=== PATIENT | female | born 1995 | race Caucasian/White ===

== ENCOUNTER 2018-01-23 15:32 | Outpatient (CLI) | payer OTHER | END 2018-01-23 15:33 | disposition home or self-care (01) | LOC: BICULT 15:32 | PROVIDERS: ATTEND Student in an Organized Health Care Education/Training Program | DX: N63.20 Unspecified lump in the left breast, unspecified quadrant (principal) ==

== ENCOUNTER 2018-08-02 15:34 | Outpatient (CLI) | payer BC ==
--- NOTE | 2018-08-02 16:47 | ULT ---
LEFT BREAST DIAGNOSTIC ULTRASOUND: 08/02/18 INDICATION: Followup left breast mass. COMPARISON: Prior study from [facility] [place] dated 01/23/18. FINDINGS: Within the left breast 3:30 position, 3 cm from the nipple, there is a well circumscribed 1.2 x 0.6 x 1.1 cm hypoechoic mass. This corresponds to the lesion seen on the comparison examination. IMPRESSION: Stable left breast mass. Would recommend a full two years of sonographic followup for stability. The next followup is recommended to occur six months from today. The patient at that followup examinati on will be a year removed from the initial evaluation dated 01/23/18. Findings counseled to the frederick guerrero [facility]. POS: OFF
== END 2018-08-02 15:35 | disposition home or self-care (01) ==
LOC: BICULT 15:34
PROVIDERS: ATTEND Student in an Organized Health Care Education/Training Program
DX: N63.23 Unspecified lump in the left breast, lower outer quadrant (principal)

== ENCOUNTER 2019-01-01 15:52 | Outpatient (CLI) | payer BC ==
--- NOTE | 2019-01-01 16:08 | ULT ---
LEFT BREAST ULTRASOUND LIMITED: 01/01/19 HISTORY: Follow-up palpable finding in the left breast, 3:30 o'clock position, 3 cm from the nipple. COMPARISON: 08/02/18, 01/23/18. Circumscribed hypoechoic solid mass measuring 0.7 x 1.1 x 1.1 cm in size, stable when compared to the prior examination of 01/23/18. This is consistent with a benign fibroadenoma. I would recommend one more follow-up ultrasound examin ation in one year. If this mass remains stable as expected at that point in time, then no additional imaging would need to be performed in this regard. IMPRESSION: BIRADS 3: Probably Benign Finding Initial Short-Interval Follow-Up Suggested Initial short-term follow up examination. One year follow-up breast ultrasound is recommended. POS: OFF
== END 2019-01-01 15:53 | disposition home or self-care (01) ==
LOC: BICULT 15:52
PROVIDERS: ATTEND Student in an Organized Health Care Education/Training Program
DX: N63.23 Unspecified lump in the left breast, lower outer quadrant (principal)

== ENCOUNTER 2020-01-01 08:52 | Outpatient (CLI) | payer BC ==
--- NOTE | 2020-01-01 11:22 | ULT ---
LEFT BREAST ULTRASOUND LIMITED: HISTORY: Followup fibroadenoma evaluation left breast. FINDINGS: The left breast is evaluated in the 3:30 o'clock position 3 cm from the nipple. There is a circumscr ibed hypoechoic mass measuring 0.7 x 1.0 x 1.2 cm in size. Evidence for a fibroadenoma. This is sta ble dating back to 2018. Stable circumscribed hypoechoic mass in the left breast 3:30 o'clock position 3 cm from the nipple, e vidence for a fibroadenoma which has been stable for 2 years. No additional ultrasound imaging is ne eded unless the patient's physical exam changes. If this mass enlarges or becomes symptomatic, follo wup ultrasound at that point in time should be considered. Followup screening mammogram baseline study recommended at age 35-40 depending upon risk factors. POS: [place]
== END 2020-01-01 08:53 | disposition home or self-care (01) ==
LOC: BICULT 08:52
PROVIDERS: ATTEND Student in an Organized Health Care Education/Training Program
DX: D24.2 Benign neoplasm of left breast (principal)